=== PATIENT | male | born 1945 | race Caucasian/White ===

== ENCOUNTER → 2019-02-17 | Outpatient (CLI) | payer MEDICARE, BC | LOC: CARD 09:16 | PROVIDERS: ATTEND Family Medicine | DX: I10 Essential (primary) hypertension (principal); I34.0 Nonrheumatic mitral (valve) insufficiency | CPT/HCPCS: 93306 ==

== ENCOUNTER → 2022-03-04 | Outpatient (CLI) | payer BC, MEDICARE ==
--- NOTE | 2022-03-04 13:43 | Diagnostic Imaging Report ---
PROCEDURE: CT chest without contrast. TECHNIQUE: Multiple contiguous axial images were obtained through the chest without the use of intravenous contrast. Auto Exposure Controls were utilized during the CT exam to meet ALARA standards for radiation dose reduction. INDICATION: Smoking and asbestos exposure. No priors. 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 These are associated with some areas of subpleural scarring and atelectasis most notable at the posterior sulcal portion of the right lower lobe. There are predominantly biapical features of centrilobular emphysema. No pneumothorax. There is no thoracic lymphadenopathy. No pleural or pericardial effusion, the thoracic aorta nonaneurysmal. There are coronary arterial laparoscopic calcifications most notably along the left. The visualized upper abdomen appeared nonacute. 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 There is a mild biapical centrilobular emphysema. Some areas of linear scarring and parenchymal bands in the lung bases adjacent to the pleural plaques greater right, no features felt suggestive of pneumonia and no findings to suggest a neoplasm. Dictated by: Dictated on workstation # [id number]
== END ==
LOC: RAD FS 12:20
PROVIDERS: ATTEND Nurse Practitioner
DX: Z01.89 Encounter for other specified special examinations (principal); Z87.891 Personal history of nicotine dependence; Z77.090 Contact with and (suspected) exposure to asbestos
CPT/HCPCS: 71250